=== PATIENT | female | born 1990 | race Caucasian/White ===

== ENCOUNTER 2018-02-01 22:00 | Emergency (ER) | END 2018-02-02 01:32 | disposition home or self-care (01) ==

== ENCOUNTER 2018-08-17 05:01 | Emergency (ER) | payer MEDICAID ==
[~2018-08-17] VITALS: Ht 165.1 cm; Wt 93.3 kg
[~2018-08-17 05:01] MED LIST: COL625 PO; HYDR-3980 PO; IBUP-1542 PO; ONDA4TAB14 PO; PRENAT PO; URSO300C21 PO
[2018-08-17 05:02] VITALS: BP 139/92; PULSE 87; RESP 18; Ht 165.1 cm; Wt 93.3 kg
[2018-08-17] MEDS ORDERED: morphine 2 MG INJ IV STA (05:21)
[2018-08-17] MEDS ORDERED: ONDANSETRON 4 MG INJ IV STA (05:21)
[2018-08-17] MEDS ORDERED: KETOROLAC 15 MG INJ IV STA (05:21)
[2018-08-17] MEDS ORDERED: SOD CHLORIDE 0.9% 1,000 ML IV STA (05:21)
--- NOTE | 2018-08-17 05:39 | ERD ---
ER Documentation Chief Complaint Chief Complaint RUQ ab pain x 1 day HPI 19-year-old female with history of gallstones is here with right upper quadrant pain that began last night. She has nausea and vomiting. No diarrhea. No fever. Pain is worse after eating. Has not taken any medication for her pain. No dysuria hematuria frequency. Denies possibility of . ROS All systems reviewed and are negative except as per history of present illness. Medications Home Meds Active Scripts Ondansetron (Ondansetron Odt) 4 Mg Tab.rapdis, 4 MG PO Q6H PRN for NAUSEA AND/OR VOMITING, #20 TAB Prov:JACKIE ELENA PA-C 02/02/18 Hydrocodone/Acetaminophen (White 10-325 Tablet) 1 Each Tablet, 1 TAB PO Q6H PRN for PAIN, #20 TAB Prov:JACKIE ELENA PA-C 02/02/18 Ibuprofen* (Ibuprofen*) 600 Mg Tablet, 600 MG PO Q6, #20 TAB 0 Refills Prov:YOBANY MALONE MD 02/08/16 Reported Medications Colesevelam Hcl* (Welchol*) 625 Mg Tablet, 625 MG PO BID, TAB 02/06/16 Ursodiol* (Actigall*) 300 Mg Cap, 300 MG PO TID, #90 CAP 02/06/16 Multivit/Min/Fol Ac/Iron/Pren* ( S*) 1 Tab Tab, 1 TAB PO DAILY, TAB 06/14/14 Allergies Allergies: Coded Allergies: No Known Allergy (Unverified , 02/01/18) PMhx/Soc History of Surgery: Yes (tubal ligation, ectopic preg) Anesthesia Reaction: No Hx Neurological Disorder: No Hx Respiratory Disorders: No Hx Cardiac Disorders: No Hx Psychiatric Problems: No Hx Miscellaneous Medical Probl: No Hx Alcohol Use: No Hx Substance Use: No Hx Tobacco Use: No Smoking Status: Never smoker FmHx Family History: No diabetes Physical Exam Vitals Vital Signs Date Temp Pulse Resp B/P (MAP) Pulse Ox O2 O2 Flow FiO2 Time Delivery Rate 08/17/18 98.1 87 18 139/92 99 05:02 (108) Physical Exam INITIAL VITAL SIGNS: Reviewed by me GENERAL: Awake, alert and oriented x 4, well appearing, nontoxic, speaking in full sentences. No acute distress HEAD: Atraumatic NECK: Supple. No masses. Full range of motion. No meningismus. No midline tenderness. EYES: EOMI. PERRL. RESPIRATORY: Clear to auscultation bilaterally. Symmetric chest wall rise. No wheezing or rales. No accessory muscle use. CV: Regular rate and rhythm. No murmurs, rubs, or gallops. ABDOMEN: Soft, non-distended. Positive Mcalister. Negative McBurneys point tenderness. No CVA tenderness bilaterally. No guarding. No rebound. Results 24 hrs Laboratory Tests Test 08/17/18 05:32 POC Beta HCG, Qualitative NEGATIVE Current Medications Medications Dose Sig/Quinton Start Time Status Last (Trade) Ordered Route PRN Stop Time Admin Dose Reason Admin Sodium 1,000 ml @ Q1H STAT 08/17/18 Chloride 1,000 mls/hr IV 05:21 08/17/18 06:20 Morphine 2 mg ONCE STAT 08/17/18 DC Sulfate IV 05:21 (morphine) 08/17/18 05:23 Ondansetron 4 mg ONCE STAT 08/17/18 DC HCl (Zofran IV 05:21 Inj) 08/17/18 05:23 Ketorolac 15 mg ONCE STAT 08/17/18 DC Tromethamine IV 05:21 (Toradol) 08/17/18 05:23 Procedures/MDM Patient with history of gallstones is here with right upper quadrant pain. Abdominal labs and ultrasound ordered. Results still pending at the end of my shift and this patient will pass the past onto the next provider who will dictate an addendum with results. Departure Diagnosis: Primary Impression: Abdominal pain Condition: Stable JACKIE ELENA PA-C Aug 17, 2018 05:39
[2018-08-17] MEDS ORDERED: HYDR-4011 PO (05:40)
[2018-08-17] MEDS ORDERED: ONDA4TAB14 PO (05:40)
[2018-08-17] MEDS ORDERED: KETOROLAC 30 MG INJ IV STA (06:51)
[2018-08-17] MEDS ORDERED: DICYCLOMINE 10 MG CAP PO ONE (07:00)
== END 2018-08-17 07:12 | disposition home or self-care (01) ==
LOC: FTE 05:01
DX: R10.11 Right upper quadrant pain (principal); R11.2 Nausea with vomiting, unspecified
CPT/HCPCS: 36415; 76705; 80053; 81003; 81025; 83690; 85025; 96361; 96374; 96375; 96376; J1885; J2270; J2405; J7030; Z7502; Z7610